=== PATIENT | female | born 1995 | race American Indian/Alaskan Native ===

== ENCOUNTER 2017-01-21 19:20 | Inpatient (IN) | payer OTHER ==
[2017-01-21 19:44] VITALS: BMI 29.7
[2017-01-21] MEDS: Lactated Ringer's 1,000 ML IV SCH (20:45)
[2017-01-21 20:59] LABS: HEMOGLOBIN 10.8 g/dL (11.0-16.0); MEAN CORPUSCULAR HEMOGLOBIN 28.2 pg (27.0-31.0); MEAN CORPUSCULAR HGB CONC 32.8 g/dL (33.0-37.0); MEAN PLATELET VOLUME 7.4 fL (7.2-11.7); RBC 3.83 Mil/uL (3.80-5.20); RED CELL DISTRIBUTION WIDTH 14.2 % (11.5-14.5); WHITE BLOOD COUNT 7.8 K/uL (4.8-10.8)
[2017-01-21 21:08] LABS: ALBUMIN 3.4 g/dL (3.5-5.0); SQUAMOUS EPITHIAL 15 /hpf (0-5); URINE BACTERIA FEW (<OCC); URINE BILIRUBIN NEGATIVE (NEGATIVE); URINE CLARITY Hazy (Clear); URINE COLOR Yellow (YELLOW); URINE GLUCOSE (UA) NORMAL (Normal); URINE LEUKOCYTE ESTERASE 3+ Leu/uL (Negative); URINE NITRATE NEGATIVE (NEGATIVE); URINE PROTEIN NEGATIVE (NEGATIVE); URINE UROBILINOGEN NORMAL mg/dL (0.2-1.0)
[2017-01-21 21:09] LABS: URINE BLOOD 1+ (NEGATIVE)
[2017-01-21 21:11] LABS: AST/SGOT 20 U/L (14-36); BLOOD UREA NITROGEN 15 mg/dL (7-17); GFR AFRICAN-AMERICAN > 60; GFR NON-AFRICAN AMERICAN > 60
[2017-01-21 21:12] LABS: ALT/SGPT 23 U/L (9-52)
[2017-01-21] MEDS ORDERED: Penicillin G Potassium 5 MU in Dextrose 5% In Water 50 ML IV ONE (22:19)
--- NOTE | 2017-01-21 22:48 | OBHP ---
Datetime: 01/21/2017 22:35 IP Adm Impression: Term, intrauterine ; Active labor IP Chief Complaint Other: R/O labor IP Admit Plan: Admit to unit Admit Comment, IP Provider: 21 yo , LMP ?05/06, JT 01/22/17, EGA 39w 6d referred by priv Ob Dr. Robbin Rojas for labor progress. Seen in office earlier today: found to be 3 cm. (+) AFM; denies LO F, Vb (+) occ Ctx, pain scale 3/10. issues: UTI x 1; GBS (+) P Ob: [birth year], , 38weeks, female, 5lb 9oz; [place], no complications P MAGISTRATE: 9 x monthly x 5. Denies STIs PMH: denies PSH: denies NKDA Meds: PNV Soc Hx: denies tobacco, illicit drug or EtOH use. x 2 years; together 3 years. Fam Hx: Mother alive 40 y.o. Father alive 45 y.o.; both, no med issues. No known fam h/o cancer P.E.: as above. WD in NAD. Awake, alert, oriented to time, person and place. Pleasant and cooerati ve. present Assessment: 21 yo P1, 39w 6d; entering active labor. GBS (+) Category 1 tracing. Clinically stable . Plan: 1) Admit 2) NPO 3) IVFs 4) Admissionl labs 5) Ampicillin 6) Conservative management - as per Dr. Rojas Pelvic Type - PN: Adequate Extremities - PN: Normal Abdomen - PN: Normal Back - PN: Normal Breast - PN: Not Done Lungs - PN: Normal Heart - PN: Normal Thyroid - PN: Not Done Neurologic - PN: Normal HEENT - PN: Normal General - PN: Normal Weight - Estimated: 3405 Presentation-Admit: Vertex FHR - Baseline A Provider: 140 Contraction Comments Provider: 6-8 Comments, ACOG Physical Exam: Abdomen: Gravid. Soft. Fundal height 40 cm All other systems reviewed and are negative Gestation - Est Wks by US: 39w 6d IP Hx Assessment: The History has been Reviewed and is Current EGA AdmitDate IP: 39.6 Vital Signs Provider: Reviewed IP Indication for Induction: Not Applicable IP Chief Complaint: Other NICHD Variability Prov Fetus A: Moderate 6-25bpm NICHD Accel Fetus A IP Provider: 15X15 FHR Category Provider Fetus A: Category I NICHD Decel Fetus A IP Provider: None Dilatation, Provider: 4 Effacement, Provider: 70 Station, Provider: -2 Genitourinary Exam: Normal DTRs - PN: Normal
[2017-01-22] MEDS: Lactated Ringer's 1,000 ML IV SCH (04:30)
[2017-01-22] MEDS ORDERED: Oxytocin 30 UNIT 30 UNITS/500 ML BAG IV SCH (13:00)
[2017-01-22] MEDS ORDERED: Lidocaine 2% Inj (20ml) ONE (14:04)
[2017-01-22] MEDS ORDERED: Acetaminophen-Codeine 300/30 mg Tab PO PRN (14:30)
[2017-01-22] MEDS: Benzocaine/Menthol 20%-0.5% Topical Spray (60 ml) TOP PRN (18:20)
[2017-01-22] MEDS ORDERED: AMPicillin 1 GM in Sodium Chloride 0.9% 100 ML IVPB SCH (19:00)
[2017-01-23 08:26] LABS: HEMOGLOBIN 11.1 g/dL (11.0-16.0); MEAN CELL VOLUME 86.6 fL (81.0-99.0); MEAN CORPUSCULAR HEMOGLOBIN 28.6 pg (27.0-31.0); MEAN PLATELET VOLUME 7.6 fL (7.2-11.7); RBC 3.88 Mil/uL (3.80-5.20); RED CELL DISTRIBUTION WIDTH 14.2 % (11.5-14.5); WHITE BLOOD COUNT 11.6 K/uL (4.8-10.8)
[2017-01-23] MEDS: Benzocaine/Menthol 20%-0.5% Topical Spray (60 ml) TOP PRN (09:07)
[2017-01-23] MEDS: Multiple Vitamins Tab PO SCH (09:08)
--- NOTE | 2017-01-23 17:10 | OBDS ---
DELIVERY PERSONNEL Delivery Doctor: Farhana Stringer MD Electrical And Electronic Assembler: Susanne Haley RN Resident: stoney Deng DO MATERNAL INFORMATION Delivery Anesthesia: Local Medications in Delivery: 20 units pit in 1000lr Estimated Blood Loss (ml): 300 Placenta Cultured: No Maternal Complications: None Other Maternal Complications: na RN Comments: na LABOR SUMMARY EDC: 01/22/2017 00:00 No. Babies in Womb: 1 Attempted: No Labor Anesthesia: None LABOR INFORMATION Onset of Labor: 01/22/2017 12:25 Complete Dilatation: 01/22/2017 14:04 Cervical Ripening Agents: Cervidil Cervical Ripening Agents: Cervidil Oxytocin: N/A Group B Beta Strep: Positive (Annotations: 12/24/2016) Antibiotics # of Doses: 4 Antibiotics Time of Last Dose: 1030 Steroids Given: None Reason Steroids Not Administered: Not Applicable MEMBRANES Membranes Rupture Method: Artificial Rupture of Membranes: 01/22/2017 10:22 Length of Rupture (hrs): 3.82 Amniotic Fluid Color: Clear Amniotic Fluid Amount: Moderate Amniotic Fluid Odor: Normal STAGES OF LABOR Stage 1 hrs: 1 Stage 1 min: 39 Stage 2 hrs: 0 Stage 2 min: 7 Stage 3 hrs: 0 Stage 3 min: 4 Total Time in Labor hrs: 1 Total Time in Labor min: 50 VAGINAL DELIVERY Episiotomy: None Laceration Extension: First Degree Laceration Type: Perineal Other Laceration: na Laceration Repair: Not Applicable Initial Vag Sponge Count: 10 Final Vag Sponge Count: 10 Initial Vag Sharps Count: 1 Final Vag Sharps Count: 1 Sharps Count Correct: Yes (Annotations: Data stored by N on behalf of user) BABY A INFORMATION Delivery Date/Time: 01/22/2017 14:11 Method of Delivery: Vaginal Born in Route : No : N/A Forceps: N/A Vacuum Extraction: N/A Shoulder Dystocia : No SHOULDER DYSTOCIA BABY A Infant Delivery Date/Time: 01/22/2017 14:11 PRESENTATION/POSITION BABY A Presentation: Cephalic Cephalic Presentation: Vertex Vertex Position: Left Occipital Anterior Breech Presentation: N/A PLACENTA INFORMATION BABY A Placenta Delivery Time : 01/22/2017 14:15 Placenta Method of Delivery: Spontaneous Placenta Status: Delivered SCORES BABY A Heart Rate 1 min: >100 bpm Reflex Irritability 1 min: Cough or Sneeze or Pulls Away Muscle Tone 1 min: Active Motion Color 1 min: Body [place], Extremities Blue Resuscitation Effort 1 min: N/A Heart Rate 5 min: >100 bpm Resp Effort 5 min: Good Cry Reflex Irritability 5 min: Cough or Sneeze or Pulls Away Muscle Tone 5 min: Active Motion Color 5 min: Body [place], Extremities Blue Resuscitation Effort 5 min: N/A SCORE 5 MIN: 9 INFORMATION BABY A Gestational Age at Delivery: 40.0 Gestational Status: Term Infant Outcome : Liveborn Infant Condition : Stable Infant Sex: Female IDENTIFICATION/MEDS BABY A ID Band Number: [id number] ID Band Location: Left Leg; Left Arm Sensor Applied: Yes Sensor Number: [id number] Sensor Location : Cord Clamp Vitamin K Given : Not Given Erythromycin Given: Not Given WEIGHT/LENGTH BABY A Infant Birthweight (gms): 3040 Weight (lb): 6 Weight (oz): 11 Length Inches: 19.50 Length cms: 49.5 CORD INFORMATION BABY A No. Cord Vessels: 3 Nuchal Cord : N/A True Knot: 1 Cord Blood Taken: Yes Infant Suction: Mouth; Nose ASSESSMENT BABY A Complications: None Physical Findings at Delivery: Within Normal Limits Respirations: Appears Normal Transferred To: Remains with Mother
--- NOTE | 2017-01-23 17:13 | OBDCSUM ---
Datetime: 01/23/2017 17:10 Follow up at, Provider: Dr. Rojas Disch Instr Activity: May Shower Disch Instr Diet: Regular Discharge Instructions, Provider: Routine instructions given Discharge Diagnosis, Provider: Term Delivered Follow up in weeks, Provider: 4 weeks Disch Activity Restrictions: No sexual activity Contraception after Delivery: Not Planning to Use
[2017-01-24 08:15] VITALS: BP 111/69; PULSE 70; RESP 18; TEMP 97.3; O2SAT 97
[2017-01-24] MEDS: Multiple Vitamins Tab PO SCH (09:56)
== END 2017-01-24 13:10 | disposition home or self-care (01) | DRG 775 ==
LOC: C.EROB 19:20 → C.4D 20:34 → C.4M 01-22 15:46
PROVIDERS: ADMIT Obstetrics & Gynecology; ATTEND Obstetrics & Gynecology
PROC: 10E0XZZ Delivery of Products of Conception, External Approach (ICD-10-PCS; principal; 2017-01-22)
PROC: 0HQ9XZZ Repair Perineum Skin, External Approach (ICD-10-PCS; 2017-01-22)
PROC: 10907ZC Drainage of Amniotic Fluid, Therapeutic from Products of Conception, Via Natural or Artificial Opening (ICD-10-PCS; 2017-01-22)
DX: O99.824 Streptococcus B carrier state complicating childbirth (principal); Z37.0 Single live birth; O70.0 First degree perineal laceration during delivery; Z3A.40 40 weeks gestation of pregnancy